=== PATIENT | male | born 1980 | race Caucasian/White ===

== ENCOUNTER → 2020-10-26 | Outpatient (CLI) | payer OTHER ==
[~2020-10-26] MED LIST: HCTZ 25MG TAB25 MG PO; LIPITOR 10MG10 MG PO; MOBIC15 MG PO; NEXIUM 40MG40 MG PO; NEXIUM40 MG PO; WELLBUTRIN SR100 M1 PO; ZANAFLEX 4MG TAB4 MG PO; ZOLOFT 100MG100 MG PO
== END ==
LOC: COL.RAD 10-12 08:00
DX: K76.0 Fatty (change of) liver, not elsewhere classified (principal); R74.8 Abnormal levels of other serum enzymes; K22.70 Barrett's esophagus without dysplasia; R14.2 Eructation; K63.5 Polyp of colon; R14.0 Abdominal distension (gaseous); R11.10 Vomiting, unspecified
CPT/HCPCS: A9541

== ENCOUNTER → 2023-12-19 | Outpatient (CLI) | payer OTHER | LOC: COL.RAD 10:47 | DX: Z02.71 Encounter for disability determination (principal) ==

== ENCOUNTER → 2023-12-22 | Outpatient (CLI) | payer OTHER | LOC: COL.RAD 12:14 | DX: Z01.89 Encounter for other specified special examinations (principal); M47.816 Spondylosis without myelopathy or radiculopathy, lumbar region; M48.061 Spinal stenosis, lumbar region without neurogenic claudication; M51.37 Other intervertebral disc degeneration, lumbosacral region; M51.24 Other intervertebral disc displacement, thoracic region ==